=== PATIENT | female | born 1980 | race African-American/Black ===

== ENCOUNTER 2020-12-21 00:13 | Emergency (ER) | payer BC, SELFPAY ==
--- NOTE | ~2020-12-21 | CT_ITS ---
EXAMINATION: CTA chest PE protocol DATE: 12/21/2020 01:30 INDICATION: Shortness of breath TECHNIQUE: Computed tomography angiography (CTA) of the chest was performed with 100 mL Omnipaque-350 intravenous contrast timed to evaluate the pulmonary arteries. Coronal maximum intensity projection 3D-reconstructions were created by the technologist. The dose-length product (DLP) was 357.97 mGy-cm. Automated exposure control and iterative reconstruction technique were employed. COMPARISON: None. FINDINGS: The pulmonary arteries are well-opacified. No pulmonary embolism is identified. There are m ultiple nodules scattered throughout all lobes of lungs. The largest measures 6 mm in the left lower lobe. There is bilateral hilar and subcarinal lymphadenopathy. There is no pleural effusion or pneumo thorax. The heart size is normal. The visualized osseous structures are unremarkable. IMPRESSION: 1. No pulmonary embolism identified. 2. Multiple pulmonary nodules scattered throughout the lungs measuring up to 6 mm and bilateral hilar and subcarinal lymphadenopathy. Findings could be infectious/inflammatory however metastatic disease is a consideration. Follow-up CT in 3-6 months is recommended. These findings and recommendations were discussed with Dr. Tyler MD in the Emergency Department at 14 18 hours on 12/21/2020. Reviewed, dictated and finalized at location A. IMPRESSION: 1. No pulmonary embolism identified. 2. Multiple pulmonary nodules scattered throughout the lungs measuring up to 6 mm and bilateral hilar and subcarinal lymphadenopathy. Findings could be infect ious/inflammatory however metastatic disease is a consideration. Follow-up CT i n 3-6 months is recommended. These findings and recommendations were discussed with Dr. Tyler MD in the [facility] Department at 1418 hours on 12/21/2020.
[2020-12-21 00:18] VITALS: BP 134/102; PULSE 67; RESP 18; TEMP 36.7; O2SAT 99
[2020-12-21 00:37] VITALS: PULSE 68
--- NOTE | 2020-12-21 00:49 | ECG_ITS ---
Measurements Intervals [place] Rate: 64 P: 41 IA: 202 QRS: 42 QRSD: 74 T: 63 QT: 369 QTc: 382 Interpretive Statements SINUS RHYTHM VENTRICULAR PREMATURE COMPLEX CANNOT RULE OUT SEPTAL INFARCT, AGE INDETERMINATE BASELINE ARTIFACT- II, III, AVF ABNORMAL ECG Electronically Signed On 12-21-2020 7:38:05 CDT by Clive Mora D.O.
[2020-12-21 01:00] VITALS: BP 139/93; PULSE 80; RESP 16; O2SAT 99
[2020-12-21 01:08] LABS: Basophils Percent Auto 0.6 % (0.2-1.2); Eosinophils Percent Auto 0.8 % (0-4.4); Hematocrit 41.8 % (37.0-47.0); Hemoglobin 13.5 g/dL (12.0-15.0); Immature Granulocyte Absolute 0.02 K/mm3 (0.00-0.031); Immature Granulocyte Percent A 0.4 % (0-0.5); Lymphocytes Percent Auto 28.9 % (18.3-44.2); Mean Corpuscular HGB Conc 32.3 g/dl (32-36); Mean Corpuscular Hemoglobin 29.6 pg (26-34); Mean Corpuscular Volume 91.7 fl (80-100); Mean Platelet Volume 10.1 fl (7.4-10.4); Monocytes Absolute Auto 0.6 K/mm3 (0.1-0.6); Monocytes Percent Auto 12.2 % (2.6-8.5); Neutrophils Absolute Auto 2.8 K/mm3 (1.3-6.7); Neutrophils Percent Auto 57.1 % (45.5-73.1); Platelet Count Result 314 k/mm3 (150-375); Red Blood Count 4.56 M/mm3 (4.2-5.4); Red Cell Distribution Width 12.7 % (11.5-14.5); White Blood Count 4.9 K/mm3 (4.5-10.0)
[2020-12-21 01:12] LABS: Anion Gap 10 mmol/L (8-16); Blood Urea Nitrogen 13 mg/dL (7-17); Calcium 9.5 mg/dL (8.4-10.2); Carbon Dioxide 25 mmol/L (22-30); Chloride 102 mmol/L (98-107); Estimated CRCL calculation 96 ml/min; Estimated Glomerular Filt Rate > 60; Glucose 96 mg/dL (65-105); Potassium 3.9 mmol/L (3.4-5.0); Sodium 137 mmol/L (137-145)
[2020-12-21 01:24] LABS: Troponin I < 0.012 ng/mL (0.000-0.034)
--- NOTE | 2020-12-21 02:01 | ED.GENADULT ---
HPI - General Adult General Chief complaint: Chest Pain Stated complaint: Chest pain, numbness, sob Time Seen by Provider: 12/21/20 00:19 History of Present Illness HPI narrative: Patient is a 40-year-old female who presents ER with chest pain shortness of breath. Reports she was driving through downtown [place] when she developed chest tightness and shortness of breath. She stopped at a gas station but they did not have aspirin so she went to another gas station. She purchased aspirin and took some pills. She was feeling better but opted to come to the ER for further evaluation. Has not had similar symptoms. No history of PE or coronary disease. Patient recently drove from [place] down to [place] to see the [employer] [place] and is currently driving back to [place]. Denies any calf pain or cramping. No lower extremity swelling. No hemoptysis. Patient reports she had some tingling in her fingers when she was breathing rapidly. No history of anxiety or panic attack but reports she was nervous driving through [place] traffic. Related Data Home Medications Medication Instructions Recorded Confirmed No Home Medications 12/21/20 12/21/20 Allergies Allergy/AdvReac Type Severity Reaction Status Date / Time No Known Allergies Allergy Verified 12/21/20 00:27 Review of Systems Review of Systems: All systems reviewed & are unremarkable except as noted in HPI and below Constitutional: Constitutional: Denies chills, Denies fever(s) and Denies weakness Cardiovascular: Cardiovascular: Reports chest pain, Denies rapid heart rate and Denies radiating jaw, neck or arm pain Respiratory: Respiratory: Denies cough, Reports dyspnea and Denies wheezing Gastrointestinal: Gastrointestinal: Denies abdominal pain, Denies nausea and Denies vomiting Musculoskeletal: Musculoskeletal: Denies muscle cramps PMFSH Past Medical History Medical History (Updated 12/21/20 @ 02:36 by Emre Evans MD) Healthy female adult Surgical History Surgical History (Updated 12/21/20 @ 02:11 by Emre Evans MD) No pertinent past surgical history Social History Social History (Updated 12/21/20 @ 02:11 by Emre Evans MD) Smoking status: Never smoker Exam Narrative: Exam Narrative: GENERAL: Well-appearing, well-nourished, and in no acute distress. HEAD: Normocephalic, atraumatic. CHEST: Clear to auscultation. No respiratory distress. HEART: Regular rate and rhythm. Normal peripheral pulses. ABDOMEN: Soft, nontender, nondistended. EXTREMITIES: Normal range of motion. No edema. SKIN: Warm, dry, no rash. NEURO: Alert and oriented x3. PSYCH: Normal mood and affect. Course Course Emergency Course: Patient resting comfortably. No pain here. Unremarkable work-up. Symptoms may have been caused by anxiety. Vital Signs Vital signs: Vital Signs Temperature 98.1 F 12/21/20 00:18 Pulse Rate 67 12/21/20 00:18 Respiratory Rate 18 12/21/20 00:18 Blood Pressure 134/102 H 12/21/20 00:18 Pulse Oximetry 99 12/21/20 00:18 Temperature 98.1 F 12/21/20 00:18 Pulse Rate 64 12/21/20 02:03 Respiratory Rate 16 12/21/20 02:03 Blood Pressure 119/78 12/21/20 02:03 Pulse Oximetry 99 12/21/20 02:03 Medical Decision Making Vital Signs Vital Signs: Vital Signs Temperature 98.1 F 12/21/20 00:18 Pulse Rate 67 12/21/20 00:18 Respiratory Rate 18 12/21/20 00:18 Blood Pressure 134/102 H 12/21/20 00:18 Pulse Oximetry 99 12/21/20 00:18 Temperature 98.1 F 12/21/20 00:18 Pulse Rate 64 12/21/20 02:03 Respiratory Rate 16 12/21/20 02:03 Blood Pressure 119/78 12/21/20 02:03 Pulse Oximetry 99 12/21/20 02:03 Lab Data Result diagrams: 12/21/20 00:55 12/21/20 00:55 Labs: Lab Results 12/21/20 12/21/20 Range/Units 00:55 00:55 WBC 4.9 (4.5-10.0) K/mm3 RBC 4.56 (4.2-5.4) M/mm3 Hgb 13.5 (12.0-15.0) g/dL Hct
[2020-12-21 02:03] VITALS: BP 119/78; PULSE 64; RESP 16; O2SAT 99
== END 2020-12-21 02:44 | disposition home or self-care (01) ==
PROVIDERS: Emergency Provider Emergency Medicine
DX: R07.89 Other chest pain (principal)
CPT/HCPCS: 36415; 71275; 80048; 81025; 84484; 85025; 93005; 99284; Q9967